=== PATIENT | female | born 1980 | race Caucasian/White ===

== ENCOUNTER 2017-08-08 08:24 | Emergency (ER) | payer MEDICAID ==
[~2017-08-08] VITALS: Ht 162.6 cm; Wt 110.9 kg
[~2017-08-08 08:24] MED LIST: ALBU6.7H INH; AZIT250T PO; CYCL-120 PO; MUPI22OI26 TP; NAPR-56 PO; NO HOME MEDS; PANT20TA2 PO
[2017-08-08 08:30] VITALS: BP 116/85
[2017-08-08] MEDS ORDERED: ibuprofen tablet 400 MG TABLET PO ONE (08:45)
[2017-08-08] MEDS ORDERED: IBUP-1984 PO (09:21)
== END 2017-08-08 09:25 | disposition home or self-care (01) ==
LOC: ER 08:25
DX: S93.402A Sprain of unspecified ligament of left ankle, initial encounter (principal); F17.200 Nicotine dependence, unspecified, uncomplicated; Z59.0 Homelessness; Z79.899 Other long term (current) drug therapy; X50.1XXA Overexertion from prolonged static or awkward postures, initial encounter; Y93.89 Activity, other specified; Y92.89 Other specified places as the place of occurrence of the external cause; Y99.9 Unspecified external cause status
CPT/HCPCS: 29515; 73600; 99284

== ENCOUNTER 2018-08-21 21:37 | Emergency (ER) | payer MEDICAID ==
[~2018-08-21] VITALS: Ht 162.6 cm; Wt 90.0 kg
[2018-08-21] MEDS ORDERED: hydrOXYzine 25 MG tablet PO ONE (22:05)
--- NOTE | 2018-08-21 23:55 | NUR ---
patient sleeping, awoke patient, im here cause the ivf embryologist brought me here "i was at [place] and told a lady my head hurt and i was anxious and not on my meds" patient sees duque at [facility]
[2018-08-22 00:02] VITALS: BP 141/70
[2018-08-22] MEDS ORDERED: CEPH500C5 PO (14:16)
[2018-08-22] MEDS ORDERED: NO HOME MEDS (17:48)
== END 2018-08-22 00:07 | disposition home or self-care (01) ==
LOC: ER 21:38
DX: F41.0 Panic disorder [episodic paroxysmal anxiety] (principal); F31.9 Bipolar disorder, unspecified; F20.9 Schizophrenia, unspecified; Z59.0 Homelessness; Z79.899 Other long term (current) drug therapy
CPT/HCPCS: 99284; Q0177

== ENCOUNTER 2018-08-22 12:47 | Emergency (ER) | payer MEDICAID ==
[~2018-08-22] VITALS: Ht 162.6 cm; Wt 98.0 kg
[2018-08-22 13:34] LABS: BASOPHILS # (AUTO) 0.1 X10'3 (0-0.2); BASOPHILS % (AUTO) 1.4 % (0-1); EOSINOPHILS # (AUTO) 0.2 X10'3 (0-0.9); EOSINOPHILS % (AUTO) 3.1 % (0-6); HEMOGLOBIN 14.7 g/dl (12.0-16.0); LYMPHOCYTES # (AUTO) 1.9 X10'3 (1.1-4.8); LYMPHOCYTES % (AUTO) 28.5 % (21-51); MEAN CORPUSCULAR HEMOGLOBIN 29.7 PG (27.0-31.0); MEAN CORPUSCULAR HGB CONC 34.1 g/dL (33.0-36.5); MEAN PLATELET VOLUME 8.4 FL (7.4-10.4); MONOCYTES # (AUTO) 0.5 X10'3 (0-0.9); MONOCYTES % (AUTO) 7.1 % (2-12); NEUTROPHILS # (AUTO) 3.9 X10'3 (1.8-7.7); NEUTROPHILS % (AUTO) 59.9 % (42-75); PLATELET COUNT 290 X10'3 (140-440); RED BLOOD COUNT 4.94 X10'6 (4.20-5.60); RED CELL DISTRIBUTION WIDTH 14.2 % (11.5-14.5); WHITE BLOOD COUNT 6.5 X10'3 (4.5-11.0)
[2018-08-22 13:54] LABS: ALANINE AMINOTRANSFERASE 28 U/L (12-78); ALBUMIN 3.6 G/DL (3.4-5.0); ALKALINE PHOSPHATASE 67 IU/L (46-116); ANION GAP 9 (8-16); ASPARTATE AMINO TRANSFERASE 14 U/L (10-37); BILIRUBIN,TOTAL 0.3 MG/DL (0.1-1.0); BLOOD UREA NITROGEN 12 MG/DL (7-18); BUN/CREATININE RATIO 14.5 (6.6-38.0); CALCIUM 10.4 MG/DL (8.5-10.1); CHLORIDE 108 MMOL/L (99-107); CREATININE 0.83 MG/DL (0.40-0.90); GLUCOSE 104 MG/DL (70-104); POTASSIUM 4.2 MMOL/L (3.5-5.1); SODIUM 143 MMOL/L (135-145); TOTAL CARBON DIOXIDE 25.8 MMOL/L (24-32); TOTAL PROTEIN 7.2 G/DL (6.4-8.2); eGFR 76 ML/MIN
[2018-08-22 14:03] LABS: CLARITY,URINE SLIGHTLY CLOUDY (Clear); COLOR,URINE YELLOW (Yellow); GLUCOSE, URINE NEGATIVE (Neg); KETONES,URINE TRACE mg/dl (Neg); LEUKOCYTE ESTERASE ,URINE TRACE (Neg); NITRITES, URINE POSITIVE (Neg); OCCULT BLOOD,URINE MODERATE (Neg); PROTEIN,URINE TRACE mg/dl (Neg); URINE HCG NEGATIVE (NEG); UROBILINOGEN,URINE 0.2 E.U/dL (0.2-1.0)
[2018-08-22 14:04] LABS: ETHANOL < 0.010 GM/DL (0.0-0.010)
[2018-08-22 14:09] LABS: UA COLLECTION TYPE CLN CATCH MIDSTREAM
[2018-08-22 14:11] LABS: BACTERIA,URINE 4+ /HPF (Neg); MUCUS STRANDS NONE SEEN /LPF (Neg); SQUAMOUS EPITHELIAL CELL,UR MANY /LPF (FEW); WBC,URINE 30-50 /HPF (0-4)
[2018-08-22 14:14] LABS: URINE AMPHETAMINE SCREEN NEGATIVE (Neg); URINE BARBITUATE SCREEN NEGATIVE (Neg); URINE BENZODIAZEPINES SCREEN NEGATIVE (Neg); URINE CANNABINOID SCREEN POSITIVE (Neg); URINE COCAINE SCREEN NEGATIVE (Neg); URINE METHADONE SCREEN NEGATIVE (Neg); URINE OPIATE SCREEN NEGATIVE (Neg); URINE PHENCYCLIDINE SCREEN NEGATIVE (Neg)
[2018-08-22] MEDS ORDERED: CEPH500C5 PO (14:16)
[2018-08-22] MEDS ORDERED: cephalexin 250mg capsule PO ONE (14:20)
--- NOTE | 2018-08-22 15:00 | NUR ---
packet faxed to [facility]
--- NOTE | 2018-08-22 15:26 | NUR ---
CALLED TO EVELYN URENA.
[2018-08-22] MEDS ORDERED: NO HOME MEDS (17:48)
--- NOTE | 2018-08-22 19:11 | NUR ---
UPSET AFTER TALKING TO ON PHONE, REQUESTING A SLEEPING PILL.
[2018-08-22] MEDS ORDERED: hydrOXYzine 25 MG tablet PO PRN (19:30)
--- NOTE | 2018-08-22 19:30 | NUR ---
TELE PSYCH REPORT SHARED WITH DR HERNADEZ, MEDS ORDERED RECOMMENDED BY SOC, INCLUDING MED FOR SLEEP PT REQUESTED.
[2018-08-22] MEDS: risperiDONE 0.5mg tablet PO SCH (19:41)
[2018-08-22] MEDS: LORazepam 1 MG tablet PO SCH (19:42)
[2018-08-22] MEDS ORDERED: risperiDONE 2mg tablet PO SCH (20:00)
--- NOTE | 2018-08-22 20:00 | NUR ---
SLEEPING MED GIVEN TO PT REQUESTED.
--- NOTE | 2018-08-23 05:51 | NUR ---
REPORT TO JIE AT [facility].
--- NOTE | 2018-08-23 06:54 | NUR ---
Pt in bed sleeping.
--- NOTE | 2018-08-23 08:05 | NUR ---
Pt sitting up in bed eating breakfast.
[2018-08-23] MEDS: LORazepam 1 MG tablet PO SCH ×2 (08:24→19:22)
[2018-08-23] MEDS: risperiDONE 0.5mg tablet PO SCH ×2 (08:24→19:22)
[2018-08-23] MEDS ORDERED: ziprasidone 20mg capsule PO SCH (13:55)
[2018-08-23] MEDS ORDERED: ziprasidone 20mg capsule PO ONE (14:00)
--- NOTE | 2018-08-23 14:30 | NUR ---
Medicated with geodon for complaints of "head bothering her".
--- NOTE | 2018-08-23 16:05 | NUR ---
Received call from [facility], they will pick pt up at 1930.
[2018-08-23 17:59] VITALS: BP 129/90
== END 2018-08-23 19:43 ==
LOC: ER 12:47
DX: F31.9 Bipolar disorder, unspecified (principal); F41.9 Anxiety disorder, unspecified; F20.9 Schizophrenia, unspecified; R44.0 Auditory hallucinations; N39.0 Urinary tract infection, site not specified; E83.52 Hypercalcemia
CPT/HCPCS: 36415; 80053; 80305; 80320; 81001; 81025; 84443; 85025; 87088; 87186; 99285; Q0177; 87077

== ENCOUNTER 2018-08-30 22:13 | Emergency (ER) | payer MEDICAID ==
[~2018-08-30] VITALS: Ht 162.6 cm; Wt 98.5 kg
[~2018-08-30 22:13] MED LIST changes: -ALBU6.7H INH; -AZIT250T PO; -CYCL-120 PO; -MUPI22OI26 TP; -NAPR-56 PO; -PANT20TA2 PO
[2018-08-30] MEDS ORDERED: LORazepam 1 MG tablet PO ONE (23:15)
[2018-08-30] MEDS ORDERED: ziprasidone 20mg capsule PO ONE (23:15)
--- NOTE | 2018-08-30 23:20 | NUR ---
Pt mood labile, vascillating between tearfulness and anxiety. Pt reports audio hallucinations of a threatening nature. She denies S/H/I. She reports being released from inpatient psychiatric facility [facility] ~ 5 days ago and last meth use 2 days (08/28/18). Additionally, pt reports she was evicted from her apartment today saying "I don't have anywhere to go. I can't go to the [facility] because I was taking more medicine than I was suppose too."
--- NOTE | 2018-08-30 23:27 | NUR ---
SOC telepsych initiated. Est time: 3-4 hrs.
--- NOTE | 2018-08-30 23:36 | NUR ---
Report give to GARY Goldberg as pt being transferred to [facility] escorted by GARY Rodriguez.
[2018-08-30 23:41] LABS: URINE HCG NEGATIVE (NEG)
[2018-08-30 23:48] LABS: BASOPHILS # (AUTO) 0.1 X10'3 (0-0.2); BASOPHILS % (AUTO) 1.2 % (0-1); EOSINOPHILS # (AUTO) 0.3 X10'3 (0-0.9); EOSINOPHILS % (AUTO) 3.1 % (0-6); HEMATOCRIT 39.2 % (35.0-45.0); HEMOGLOBIN 13.2 g/dl (12.0-16.0); LYMPHOCYTES # (AUTO) 3.4 X10'3 (1.1-4.8); LYMPHOCYTES % (AUTO) 34.3 % (21-51); MEAN CORPUSCULAR HEMOGLOBIN 29.4 PG (27.0-31.0); MEAN CORPUSCULAR HGB CONC 33.6 g/dL (33.0-36.5); MEAN CORPUSCULAR VOLUME 87.7 FL (78-98); MEAN PLATELET VOLUME 8.6 FL (7.4-10.4); MONOCYTES # (AUTO) 0.7 X10'3 (0-0.9); MONOCYTES % (AUTO) 7.3 % (2-12); NEUTROPHILS # (AUTO) 5.4 X10'3 (1.8-7.7); NEUTROPHILS % (AUTO) 54.1 % (42-75); PLATELET COUNT 289 X10'3 (140-440); RED BLOOD COUNT 4.48 X10'6 (4.20-5.60); RED CELL DISTRIBUTION WIDTH 14.1 % (11.5-14.5)
[2018-08-30 23:51] LABS: ALANINE AMINOTRANSFERASE 34 U/L (12-78); ALBUMIN 3.6 G/DL (3.4-5.0); ALBUMIN/GLOBULIN RATIO 1.1 (1.1-1.5); ALKALINE PHOSPHATASE 83 IU/L (46-116); ANION GAP 10 (8-16); ASPARTATE AMINO TRANSFERASE 18 U/L (10-37); BILIRUBIN,TOTAL 0.2 MG/DL (0.1-1.0); BLOOD UREA NITROGEN 20 MG/DL (7-18); CALCIUM 11.2 MG/DL (8.5-10.1); CHLORIDE 108 MMOL/L (99-107); CREATININE 0.87 MG/DL (0.40-0.90); ETHANOL < 0.010 GM/DL (0.0-0.010); GLUCOSE 137 MG/DL (70-104); POTASSIUM 3.7 MMOL/L (3.5-5.1); SODIUM 142 MMOL/L (135-145); TOTAL CARBON DIOXIDE 24.3 MMOL/L (24-32); TOTAL PROTEIN 6.8 G/DL (6.4-8.2); eGFR 72 ML/MIN
[2018-08-30 23:51] LABS: URINE AMPHETAMINE SCREEN NEGATIVE (Neg); URINE BARBITUATE SCREEN NEGATIVE (Neg); URINE BENZODIAZEPINES SCREEN NEGATIVE (Neg); URINE CANNABINOID SCREEN POSITIVE (Neg); URINE COCAINE SCREEN NEGATIVE (Neg); URINE METHADONE SCREEN NEGATIVE (Neg); URINE OPIATE SCREEN NEGATIVE (Neg); URINE PHENCYCLIDINE SCREEN NEGATIVE (Neg)
--- NOTE | 2018-08-31 | NUR ---
Pt arrived on unit at 23:48 accompanied by staff. Pt changes into green scrubs in restroom and belongings are inventoried. Pt requests a sandwhich and juice which she was given and ate. Pt denies any suicidal ideation at this time. Pt says she is having auditory hallucinations that are telling her "bad" things.
[2018-08-31] MEDS ORDERED: HYDR-3686 PO (00:16)
[2018-08-31] MEDS ORDERED: cephalexin PO (00:16)
[2018-08-31] MEDS ORDERED: PRAZ1CAP5 PO (00:16)
--- NOTE | 2018-08-31 02:54 | NUR ---
Pt was interviewed by telepsych, now asleep in bed.
--- NOTE | 2018-08-31 05:36 | NUR ---
PT is sleeping on R side, no signs or symptoms of distress observed.
[2018-08-31] MEDS: cephalexin 250mg capsule PO SCH ×5 (08:00→20:16)
--- NOTE | 2018-08-31 11:55 | NUR ---
patient awoke from sleep and now eating
--- NOTE | 2018-08-31 12:17 | NUR ---
PATIENT RESTING IN BED. REQUESTING TO TAKE A SHOWER. PATIENT INFORMED THAT SHOWER FACILITIES UNAVAILABLE HERE, BUT OFFERED TOWEL AND WASHCLOTH TO [facility]. PATIENT DECLINES AT THIS TIME.
--- NOTE | 2018-08-31 12:40 | NUR ---
PATIENT ON MENSTRUAL CYCLE AND HAS SOILED LINEN. WASHED UP IN BATHROOM AND HYGIENE PRODUCTS GIVEN. PATIENT STARTED TO SOB AND WHINE, STATING THAT SHE NEEDS MEDICATION FOR HER HEAD. UP OUT OF BED, PACING AROUND, TALKING TO SELF, THEN RETURNING BACK TO BED ON STAFF DIRECTION.
[2018-08-31] MEDS: hydrOXYzine 25 MG tablet PO PRN (12:53)
[2018-08-31] MEDS ORDERED: ziprasidone IM 20mg inj **IM only IM ONE (12:55)
--- NOTE | 2018-08-31 13:10 | NUR ---
MEDICATED FOR ANXIETY ORDERED. CONTINUES TO HAVE OUTBURSTS WITH CRYING AND APOLOGIZING. PATIENT REASSURED. OFFERED LUNCH TRAY.
--- NOTE | 2018-08-31 14:11 | NUR ---
DOZING IN BED. APPEARS CALM AT THIS TIME. RESP UNLABORED.
[2018-08-31] MEDS ORDERED: haloperidol 5mg tablet PO ONE (18:25)
[2018-08-31] MEDS ORDERED: LORazepam 1 MG tablet PO ONE (18:25)
--- NOTE | 2018-08-31 18:30 | NUR ---
The patient awakened and immediately began moaning and responding to internal stimuli. She presented as very distraught. Stated she was hearing voices saying that "They're going to take me away and kill me" She denies that she has visual hallucinations. Her speech was fast and pressured. Stated that she had to move out of her apartment and stated that she had been living in a constant state of fear and felt her life was in danger. She denies active suicidal thoughts. She stated that her anxiety was very high. Discussed level of agitation with MARQUIS Wren and orders received.
[2018-08-31] MEDS: ziprasidone 20mg capsule PO SCH (20:17)
[2018-08-31] MEDS ORDERED: prazosin 1mg capsule PO SCH (21:00)
--- NOTE | 2018-08-31 21:28 | NUR ---
The patient is resting quietly on her bed and appears to be asleep.
--- NOTE | 2018-08-31 23:17 | NUR ---
Patient recently here at [facility] ER and dx'd with a UTI. Her urine currently is very malodorous and MD made aware and will repeat UA this visit as well. The patient stated earlier in the evening that she forgot to tell any one but reports that ativan causes a paradoxical reaction and the ativan was listed in the record as an adverse reaction.
--- NOTE | 2018-09-01 00:44 | NUR ---
The patient appears to be asleep at this time
--- NOTE | 2018-09-01 03:01 | NUR ---
The patient appears to be asleep at this time
--- NOTE | 2018-09-01 04:54 | NUR ---
The patient appears to be asleep
--- NOTE | 2018-09-01 06:30 | NUR ---
Asleep upon change of shift observation. Undisturbed at this time.
[2018-09-01] MEDS ORDERED: lactobacillus rhamnosus 10,000 MMU CELLS/CAPSULE PO SCH (08:00)
--- NOTE | 2018-09-01 08:30 | NUR ---
Awakened for breakfast and AM medications. Standing by the side of her bed, talking to self. Occasionally making crying sounds. Denies SI or intent.
[2018-09-01] MEDS: hydrOXYzine 25 MG tablet PO PRN (08:42)
[2018-09-01] MEDS: ziprasidone 20mg capsule PO SCH (08:42)
[2018-09-01] MEDS: cephalexin 250mg capsule PO SCH (08:42)
--- NOTE | 2018-09-01 09:53 | NUR ---
Willow Cervantes from [facility] at bedside to evaluate patient for possible 5150 criteria.
--- NOTE | 2018-09-01 10:12 | NUR ---
Patient did not meet criteria for 5150 hold. Will be discharged to the [facility] to ask for reinstatement status.
--- NOTE | 2018-09-01 11:00 | NUR ---
Patient discharged to the [facility] via ambulatory with all her personal possessions including medications. Given a bus pass [facility]. Patient will follow up with the [facility] for psychiatric care. Encouraged/educated to stay away from methamphetamine as much as possible to decrease behavior dangerous to self.
[2018-09-01 13:14] VITALS: BP 130/74
== END 2018-09-01 11:00 | disposition home or self-care (01) ==
LOC: ER 22:14
DX: F29 Unspecified psychosis not due to a substance or known physiological condition (principal); F41.9 Anxiety disorder, unspecified; F31.9 Bipolar disorder, unspecified; F20.9 Schizophrenia, unspecified
CPT/HCPCS: 36415; 80053; 80305; 80320; 81025; 85025; 96372; 99285; J3486; Q0177

== ENCOUNTER 2018-10-12 21:49 | Emergency (ER) | payer MEDICAID ==
[~2018-10-12] VITALS: Ht 162.6 cm; Wt 110.0 kg
[~2018-10-12 21:49] MED LIST changes: +HYDR-3686 PO; +MECL-111 PO; +PRAZ1CAP5 PO; +cephalexin PO
[2018-10-12 22:05] VITALS: BP 135/89
[2018-10-12] MEDS ORDERED: ketorolac trometh inj. 60 MG/2 ML VIAL IM ONE (22:25)
== END 2018-10-12 22:45 | disposition home or self-care (01) ==
LOC: ER 21:49
DX: R51 Headache (principal); Z88.8 Allergy status to other drugs, medicaments and biological substances; Z79.899 Other long term (current) drug therapy
CPT/HCPCS: 96372; 99283; J1885

== ENCOUNTER 2018-10-14 23:26 | Emergency (ER) | payer MEDICAID ==
[~2018-10-14] VITALS: Ht 157.5 cm; Wt 92.8 kg
[2018-10-14 23:51] VITALS: BP 139/89
[2018-10-15] MEDS ORDERED: ibuprofen tablet 400 MG TABLET PO ONE (00:45)
[2018-10-15] MEDS ORDERED: acetaminophen 325mg tablet PO ONE (00:45)
--- NOTE | 2018-10-15 00:59 | NUR ---
PT GIVEN SANDWICH, APPLE JUICE AND STRING CHEESE.
== END 2018-10-15 01:12 | disposition home or self-care (01) ==
LOC: ER 23:26
DX: R51 Headache (principal); Z88.6 Allergy status to analgesic agent; Z79.899 Other long term (current) drug therapy
CPT/HCPCS: 99283

== ENCOUNTER 2018-10-16 23:31 | Emergency (ER) | payer MEDICAID ==
[~2018-10-16] VITALS: Ht 157.5 cm; Wt 93.2 kg
[2018-10-16 23:40] VITALS: BP 116/70
[2018-10-17] MEDS ORDERED: ketorolac tromethamine 15mg/ml inj. IM ONE (00:35)
== END 2018-10-17 00:57 | disposition home or self-care (01) ==
LOC: ER 23:31
DX: R51 Headache (principal); Z79.899 Other long term (current) drug therapy; Z88.8 Allergy status to other drugs, medicaments and biological substances
CPT/HCPCS: 96372; 99283; J1885

== ENCOUNTER 2021-12-26 23:43 | Emergency (ER) | payer MEDICAID ==
[~2021-12-26] VITALS: Ht 157.5 cm; Wt 58.9 kg
[~2021-12-26 23:43] MED LIST changes: -HYDR-3686 PO; -MECL-111 PO; -NO HOME MEDS; -PRAZ1CAP5 PO; +QUET50TA24 PO; +VENL75CA61 PO; -cephalexin PO
[2021-12-26] MEDS ORDERED: LORazepam 2 mg/ml vial IM ONE (23:55)
[2021-12-26] MEDS ORDERED: ketorolac tromethamine 15mg/ml inj. IM ONE (23:55)
[2021-12-27 02:05] LABS: BASOPHILS % (AUTO) 0.3 % (0-1); EOSINOPHILS # (AUTO) 0.1 X10'3 (0-0.9); EOSINOPHILS % (AUTO) 0.8 % (0-6); HEMATOCRIT 34.7 % (35.0-45.0); HEMOGLOBIN 11.7 g/dl (12.0-16.0); LYMPHOCYTES # (AUTO) 1.6 X10'3 (1.1-4.8); LYMPHOCYTES % (AUTO) 9.7 % (21-51); MEAN CORPUSCULAR HEMOGLOBIN 30.1 PG (27.0-31.0); MEAN CORPUSCULAR HGB CONC 33.6 g/dL (33.0-36.5); MEAN CORPUSCULAR VOLUME 89.6 FL (78-98); MONOCYTES # (AUTO) 1.1 X10'3 (0-0.9); MONOCYTES % (AUTO) 6.9 % (2-12); NEUTROPHILS # (AUTO) 13.3 X10'3 (1.8-7.7); NEUTROPHILS % (AUTO) 82.3 % (42-75); PLATELET COUNT 315 X10'3 (140-440); RED BLOOD COUNT 3.88 X10'6 (4.20-5.60); RED CELL DISTRIBUTION WIDTH 14.3 % (11.5-14.5); WHITE BLOOD COUNT 16.1 X10'3 (4.5-11.0)
[2021-12-27 02:06] LABS: ALANINE AMINOTRANSFERASE 18 U/L (12-78); ALBUMIN 3.4 G/DL (3.4-5.0); ALBUMIN/GLOBULIN RATIO 0.9 (1.1-1.5); ALKALINE PHOSPHATASE 93 IU/L (46-116); ANION GAP 8 (8-16); ASPARTATE AMINO TRANSFERASE 16 U/L (10-37); BILIRUBIN,TOTAL 0.3 MG/DL (0.1-1.0); BLOOD UREA NITROGEN 14 MG/DL (7-18); BUN/CREATININE RATIO 17.9 (6.6-38.0); C-REACTIVE PROTEIN 11.03 MG/DL (0.0-0.5); CALCIUM 9.9 MG/DL (8.5-10.1); CHLORIDE 103 MMOL/L (99-107); CREATININE 0.78 MG/DL (0.40-0.90); GLUCOSE 137 MG/DL (70-104); POTASSIUM 3.8 MMOL/L (3.5-5.1); SODIUM 137 MMOL/L (135-145); TOTAL CARBON DIOXIDE 26.2 MMOL/L (24-32); TOTAL PROTEIN 7.3 G/DL (6.4-8.2); eGFR 81 ML/MIN
[2021-12-27] MEDS ORDERED: CefTRIAXone/D5W-Rocephin 1gm 50 ML IV ONE (05:30)
[2021-12-27] MEDS ORDERED: ACET650T58 PO (05:34)
[2021-12-27] MEDS ORDERED: CEPH500C2 PO (05:34)
[2021-12-27] MEDS ORDERED: IBUP-1985 PO (05:34)
[2021-12-27 05:57] LABS: CLARITY,URINE SLIGHTLY CLOUDY (Clear); COLOR,URINE YELLOW (Yellow); GLUCOSE, URINE NEGATIVE (Neg); KETONES,URINE NEGATIVE (Neg); LEUKOCYTE ESTERASE ,URINE NEGATIVE (Neg); NITRITES, URINE POSITIVE (Neg); OCCULT BLOOD,URINE TRACE-INTACT (Neg); PH,URINE 5.5 (4.8-8.0); PROTEIN,URINE NEGATIVE (Neg); UROBILINOGEN,URINE 0.2 E.U/dL (0.2-1.0)
[2021-12-27 06:03] LABS: UA COLLECTION TYPE STRAIGHT CATH
[2021-12-27 06:04] LABS: BACTERIA,URINE 4+ /HPF (Neg); MUCUS STRANDS FEW /LPF (Neg); RBC,URINE NONE SEEN /HPF (0-2); SQUAMOUS EPITHELIAL CELL,UR FEW /LPF (FEW); TRANSITIONAL EPI CELLS,URINE FEW /HPF; WBC,URINE 0-4 /HPF (0-4)
--- NOTE | 2021-12-27 06:53 | NUR ---
IV ABX finished from overnight associate. VSS. Pt educated regarding prescription to be picked up at [facility] on [facility]. Verbalized understanding. D/Kang from unit ambulating ind.
[2021-12-27 06:54] VITALS: BP 101/53
== END 2021-12-27 06:58 | disposition home or self-care (01) ==
LOC: ER 23:44
DX: M79.671 Pain in right foot (principal); Z20.822 Contact with and (suspected) exposure to COVID-19; N39.0 Urinary tract infection, site not specified; F31.9 Bipolar disorder, unspecified
CPT/HCPCS: 36415; 71045; 73590; 73630; 80053; 81001; 83605; 84145; 85025; 85651; 86140; 87040; 87077; 87088; 87186; 87635; 93971; 96365; 96372; 99285; C9803; J0696; J1885; J2060; A4353

== ENCOUNTER 2022-07-24 13:14 | Emergency (ER) | payer MEDICAID ==
[~2022-07-24] VITALS: Ht 157.5 cm; Wt 59.1 kg
[~2022-07-24 13:14] MED LIST changes: +IBUP-1985 PO
[2022-07-24 13:48] LABS: BASOPHILS % (AUTO) 0.6 % (0-1); EOSINOPHILS # (AUTO) 0.1 X10'3 (0-0.9); EOSINOPHILS % (AUTO) 1.6 % (0-6); HEMATOCRIT 38.7 % (35.0-45.0); HEMOGLOBIN 12.7 g/dl (12.0-16.0); LYMPHOCYTES # (AUTO) 1.8 X10'3 (1.1-4.8); LYMPHOCYTES % (AUTO) 26.7 % (21-51); MEAN CORPUSCULAR HEMOGLOBIN 30.1 PG (27.0-31.0); MEAN CORPUSCULAR HGB CONC 32.9 g/dL (33.0-36.5); MEAN CORPUSCULAR VOLUME 91.5 FL (78-98); MEAN PLATELET VOLUME 7.6 FL (7.4-10.4); MONOCYTES # (AUTO) 0.5 X10'3 (0-0.9); MONOCYTES % (AUTO) 7.9 % (2-12); NEUTROPHILS # (AUTO) 4.2 X10'3 (1.8-7.7); NEUTROPHILS % (AUTO) 63.2 % (42-75); PLATELET COUNT 327 X10'3 (140-440); RED BLOOD COUNT 4.23 X10'6 (4.20-5.60); WHITE BLOOD COUNT 6.7 X10'3 (4.5-11.0)
[2022-07-24 13:59] LABS: ALANINE AMINOTRANSFERASE 17 U/L (12-78); ALBUMIN 3.5 G/DL (3.4-5.0); ALBUMIN/GLOBULIN RATIO 0.9 (1.1-1.5); ALKALINE PHOSPHATASE 87 IU/L (46-116); ANION GAP 3 (8-16); ASPARTATE AMINO TRANSFERASE 20 U/L (10-37); BILIRUBIN,TOTAL 0.2 MG/DL (0.1-1.0); BLOOD UREA NITROGEN 10 MG/DL (7-18); CALCIUM 10.6 MG/DL (8.5-10.1); CHLORIDE 105 MMOL/L (99-107); CREATININE 0.77 MG/DL (0.40-0.90); ETHANOL < 0.010 GM/DL (0.0-0.010); GLUCOSE 141 MG/DL (70-104); POTASSIUM 4.3 MMOL/L (3.5-5.1); SODIUM 138 MMOL/L (135-145); TOTAL CARBON DIOXIDE 30.2 MMOL/L (24-32); TOTAL PROTEIN 7.4 G/DL (6.4-8.2); eGFR 81 ML/MIN
--- NOTE | 2022-07-24 14:00 | NUR ---
PT SCREAMING AND CRYING, REFUSING TO CHANGE INTO GREEN SCRUBS. SECURITY CALLED TO BEDSIDE. PT CHANGED INTO SCRUBS RELUCTANTLY. PT REPATING, "YOU CAN'T KEEP ME HERE I'VE DONE NOTHING WRONG!" THIS RN ATTEMPTED TO EDUCATE PT ON HOLD STATUS, PT DOES NOT COMPREHEND. PT MUCH CALMER AFTER CHANGING INTO SCRUBS. TURKEY SANDWICH AND WATER PROVIDED.
--- NOTE | 2022-07-24 15:04 | NUR ---
PT SITTING ON BED EATING SANDWICH. RESPONDING OCCASIONALLY TO INTERNAL STIMULI. FREQUENT HANDWASHING.
--- NOTE | 2022-07-24 15:08 | NUR ---
PT REQUESTING "LIGHTS OFF AND A BLANKIE". BLANKET PROVIDED. PT LYING ON SIDE, KNEES FLEXED, SUCKING THUMB.
--- NOTE | 2022-07-24 15:21 | NUR ---
PT APPEARS DISTRESSED SITTING ON BED REACTING TO INTERNAL STIMULI
[2022-07-24 15:27] LABS: URINE AMPHETAMINE SCREEN POSITIVE (Neg); URINE BARBITUATE SCREEN NEGATIVE (Neg); URINE BENZODIAZEPINES SCREEN NEGATIVE (Neg); URINE CANNABINOID SCREEN POSITIVE (Neg); URINE COCAINE SCREEN NEGATIVE (Neg); URINE METHADONE SCREEN NEGATIVE (Neg); URINE OPIATE SCREEN NEGATIVE (Neg); URINE PHENCYCLIDINE SCREEN NEGATIVE (Neg)
--- NOTE | 2022-07-24 15:34 | NUR ---
attempted to complete medication reconciliation. Pt states she takes no daily medications.
[2022-07-24 15:38] LABS: URINE HCG NEGATIVE (NEG)
--- NOTE | 2022-07-24 17:14 | NUR ---
Pt ambulating to bathroom with executive director of nursing. Sucking thumb and bouncing on balls of feet in a childlike manner. Pt cheerful and energetic.
--- NOTE | 2022-07-24 20:26 | NUR ---
Patient resting at this time, no distress noted. Breathing even and unlabored.
--- NOTE | 2022-07-24 22:49 | NUR ---
Patient remains asleep, no distress noted. Respiration even and unlabored. Self repositioning in stretcher as needed.
--- NOTE | 2022-07-24 23:51 | NUR ---
Patient awake at this time, patient requesting more blankets and sandwich. Patient given blankets. Patient informed we are out of sandwiches but offered several food alternatives, patient declines stating she is fine. Patient VS updated.
--- NOTE | 2022-07-25 01:17 | NUR ---
Patient back to sleep, no distress noted, patient breathing is even and unlabored.
--- NOTE | 2022-07-25 06:33 | NUR ---
Patient asleep, no distress noted. Breathing is even and unlabored.
--- NOTE | 2022-07-25 10:04 | NUR ---
Pt resting in bed, noted rise and fall of chest. No distress noted.
--- NOTE | 2022-07-25 10:15 | NUR ---
1:1 done at bedside, pt denies A/VH as well as S/HI stating, "I just want to go home." Pt appeared paranoid during interaction, randomly looking away from nurse as if she was seeing things. Denies distress or pain.
--- NOTE | 2022-07-25 10:19 | NUR ---
Nurse to nurse completed with [facility]. [facility] called and pt. has been accepted to [facility].
--- NOTE | 2022-07-25 10:30 | NUR ---
Called lab and had them run a UA on pt urine. Awaiting results to be faxed to [facility].
--- NOTE | 2022-07-25 12:30 | NUR ---
Lunch placed on bedside table. Pt asleep with noted rise and fall of chest. Nurse did attempt to wake pt.
[2022-07-25 13:37] LABS: CLARITY,URINE CLOUDY (Clear); COLOR,URINE YELLOW (Yellow); GLUCOSE, URINE NEGATIVE (Neg); KETONES,URINE NEGATIVE (Neg); LEUKOCYTE ESTERASE ,URINE TRACE (Neg); NITRITES, URINE POSITIVE (Neg); OCCULT BLOOD,URINE LARGE (Neg); PH,URINE 5.5 (4.8-8.0); PROTEIN,URINE NEGATIVE (Neg); UROBILINOGEN,URINE 0.2 E.U/dL (0.2-1.0)
[2022-07-25 13:38] LABS: UA COLLECTION TYPE CLN CATCH MIDSTREAM
[2022-07-25 13:43] LABS: BACTERIA,URINE 4+ /HPF (Neg); CAL OXALATE CRYSTALS 3+ /HPF (NEGATIVE); MUCUS STRANDS NONE SEEN /LPF (Neg); SQUAMOUS EPITHELIAL CELL,UR FEW /LPF (FEW)
--- NOTE | 2022-07-25 13:59 | NUR ---
Pt sleeping, noted rise and fall of chest. UA results back, culture indicated. Brandie from [facility] has been notified.
--- NOTE | 2022-07-25 14:04 | NUR ---
pt resting on right side with eyes closed, respirations equal and non-labored.
--- NOTE | 2022-07-25 14:49 | NUR ---
New order to start keflex 500mg TID to address UA abnormalities. [facility] notified of treatment.
[2022-07-25] MEDS ORDERED: cephalexin 250mg capsule PO ONE (14:50)
[2022-07-25] MEDS: cephalexin 250mg capsule PO SCH ×2 (14:50→20:36)
--- NOTE | 2022-07-25 14:56 | NUR ---
Pt ate lunch and first dose of abt given. Pt informed she may be going to [facility] in [place], pt. is not happpy about this decision. Pt. requesting to go home. Pt is heard responding to internal stimuli.
--- NOTE | 2022-07-25 15:52 | NUR ---
Notes sent to [facility] indicating first dose of ABT has been administered. Pt is sitting up in her bed eating snacks.
--- NOTE | 2022-07-25 17:32 | NUR ---
Pt sitting up in bed. No distress noted.
--- NOTE | 2022-07-25 18:01 | NUR ---
Pt eating dinner.
--- NOTE | 2022-07-25 18:37 | NUR ---
PT RESTING IN BED QUIETLY. PT DOES NOT APPEAR TO BE IN ANY DISTRESS AT THIS TIME. THE PT IS NOT CURRENTLY RESPONDING TO ANY STIMULI AT THIS TIME.
--- NOTE | 2022-07-25 19:46 | NUR ---
PT CONTINUES TO REST ON THE BED QUIETLY. PT DOES NOT APPEAR TO BE RESPONDING TO INTERNAL STIMULI AT THIS TIME. RR ARE EQUAL AND UNLABORED.
--- NOTE | 2022-07-25 20:42 | NUR ---
PT GIVEN SECOND DOSE OF KEFLEX 500MG PO TO ADDRESS THE ABNORMAL UA RESULT.
--- NOTE | 2022-07-25 20:45 | NUR ---
PROGRESS NOTE DOCUMENTING THE ADMINISTRATION OF ABX FAXED TO [facility] PER THEIR REQUEST.
--- NOTE | 2022-07-25 20:46 | NUR ---
PT GIVEN SANDWICH, WATER, APPLE JUICE, AND RUBEN CRACKERS UPON REQUEST. PT RESPONDING TO INTERNAL STIMULI WHILE EATING.
[2022-07-25] MEDS ORDERED: haloperidol 5mg tablet PO ONE (21:15)
[2022-07-25] MEDS ORDERED: diphenhydrAMINE 25mg capsule PO ONE (21:15)
--- NOTE | 2022-07-25 21:16 | NUR ---
This RN is assisting primary nurse. The patient exhibits internal stimuli and paranoia. Dr. Fu consulted, Haldol 5 mg PO and Benadryl 50 mg PO are ordered.
--- NOTE | 2022-07-25 22:16 | NUR ---
PT IS SLEEPING ON THE BED IN ER [facility] BED 27. THERE IS NO DISTRESS OBSERVED AT THIS TIME.
--- NOTE | 2022-07-25 23:58 | NUR ---
PT APPEARS TO BE ASLEEP AT THIS TIME IN THE BED. THERE IS NO DISTRESS OBSERVED AT THIS TIME. RR ARE EQUAL AND UNLABORED.
--- NOTE | 2022-07-26 01:02 | NUR ---
PT CONTINUES TO SLEEP ON THE BED WITH BLANKETS PULLED UP. NO DISTRESS IS OBSERVED AT THIS TIME.
--- NOTE | 2022-07-26 02:41 | NUR ---
PT CONTINUES TO SLEEP IN THE BED. RR ARE EQUAL AND UNLABORED. NO DISTRESS OBSERVED AT THIS TIME.
--- NOTE | 2022-07-26 03:30 | NUR ---
PT APPEARS TO BE ASLEEP IN THE BED AND SELF REPOSITIONING OCCASIONALLY. PT IS SHOWING NO S/S OF DISTRESS.
--- NOTE | 2022-07-26 04:40 | NUR ---
PT CONTINUES TO APPEAR TO BE ASLEEP. NO DISTRESS OR INTERNAL STIMULI NOTED. RR ARE EQUAL AND UNLABORED.
--- NOTE | 2022-07-26 05:53 | NUR ---
PT CONTINUES SLEEPING. NO DISTRESS OBSERVED. RR EQUAL AND UNLABORED.
[2022-07-26 07:08] VITALS: BP 105/68
--- NOTE | 2022-07-26 07:22 | NUR ---
Received Pt in bed sleeping w/o distress at this time.
[2022-07-26] MEDS: cephalexin 250mg capsule PO SCH ×2 (08:30→13:00)
--- NOTE | 2022-07-26 09:20 | NUR ---
pT REMAINS IN BED SLEEPING. sHE WOKE TO TAKE am MED W/O ISSUE.
--- NOTE | 2022-07-26 11:05 | NUR ---
Pt woke to use bathroom and returned to bed. Pt in bed with covers over her head.
--- NOTE | 2022-07-26 13:20 | NUR ---
Pt belongings returned to her and she changed into civilian clothes. [facility] laundry route driver given 5150 and belongings to transport Pt to [facility].
== END 2022-07-26 17:49 ==
LOC: ER 13:15
DX: F79 Unspecified intellectual disabilities (principal); Z20.822 Contact with and (suspected) exposure to COVID-19; F31.9 Bipolar disorder, unspecified; Z79.899 Other long term (current) drug therapy
CPT/HCPCS: 36415; 80053; 80305; 80320; 81001; 81025; 85025; 87077; 87088; 87186; 87811; 99285; Q0163

== ENCOUNTER 2025-04-11 18:32 | Emergency (ER) | payer MEDICAID ==
[~2025-04-11] VITALS: Ht 157.5 cm; Wt 111.8 kg
--- NOTE | 2025-04-11 19:16 | Physician Documentation ---
History of Present Illness ~ Chief Complaint: Bite-insect Stated Complaint: HEAD LICE Time Seen by MD: 18:50 Primary Medical Doctor: amadeo Yanes This is a 44-year-old female who presents from the [facility] due to concern for head lice patient was told they found lice in lice eggs in her hair and she would need this treated to return to the [facility], patient reports no other acute symptoms or concerns. Tetanus within 5 years?: No Medication Reconciliation Allergies: Coded Allergies: No Known Drug Allergies (Verified Allergy, Unknown, 06/22/19) lorazepam (Verified Adverse Reaction, Intermediate, agitation, 06/15/23) Discontinued Medications Permethrin (Lice Treatment), 1 APPLIC TOP ONCE Past Medical History Past Medical History: Anxiety, Bipolar, Depression, Schizophrenia Past Surgical History: noncontributory Patient History: FHx: mental illness MOTHER Alcohol Use: None Drug Use: none Lives with: Spouse Lives In: Home Occupation: employed Review of Systems ROS As stated above in the HPI, otherwise all systems are reviewed and negative. Physical Exam Vital Signs: Temperature: 97.8, Source: Temporal, Heart Rate: 104, Respiratory Rate: 16, BP: 141/84, Pulse Oximetry: 99, Weight: 111.820 Oxygen Flow Rate: 0 Physical Exam VITALS: Reviewed and as above. GENERAL: Alert, nontoxic appearing, no apparent distress. HEENT: Lice eggs on shafts of hair RESPIRATORY: No increased work of breathing, no respiratory distress, speaking in full clear sentences Progress Results/Orders Results/Orders Completed Orders - HAKEEM GODDARD SISAL OPERATOR Permethrin Hair Rinse (Lice Treatment) (04/11/25 19:20) Ivermectin 117 Gm Bottle (Ivermectin 117 (04/11/25 19:45) Medications Received in ER Medications (Trade) Dose Ordered Sig/Rah Route PRN Reason Start Time Stop Time Status Last Admin Dose Admin (Lice Treatment) 1 applic ONCE ONCE TP 04/11/25 19:20 04/11/25 19:21 DC 04/11/25 20:05 1 APPLIC (Ivermectin 117gm lotion) 1 applic ONCE ONCE TP 04/11/25 19:45 04/11/25 19:46 DC 04/11/25 20:08 1 APPLIC Vital Signs 04/11/25 04/11/25 18:41 20:09 Temp 97.8 98.6 Pulse 104 99 Resp 16 18 B/P (MAP) 141/84 140/82 Pulse Ox 99 99 O2 Flow Rate 0 Medical Decision Making Additional information obtaine: N/A Findings This otherwise well 44-year-old female presented requesting treatment for lice in order to return to the [facility], lice were found in her hair and she will require treatment. Patient provided home care instructions and return to care precautions. Differential Dx:Considerations: Include: Allergic reaction, Anaphylaxis, Cellulitis, Insect envenomation, Urticaria, Other (Body lice, scabies, dandruff) Departure Time of Disposition: 19:14 Disposition: 01 HOME / SELF CARE / HOMELESS Impression: Primary Impression: Lice infested hair Discharge Instructions: Lice, Adult Additional Instructions: You have received treatment for your lice infestation. Please additionally cone picker a lice comb from your local pharmacy to help remove the lice and nits from your hair. Please follow up with your primary care provider or the [facility] in the next few days. Please return to the emergency department for any new or worsening concerning symptoms. Referrals: NO PRIMARY CARE PROVIDER (PCP) Education Educated: Patient Educated regarding: diagnosis, treatment, prognosis, need for follow up Signature Scribe Signature: No scribe Attestation: The note accurately reflects work and decisions made by me.GARETT Leahy 04/11/25 23:12 HAKEEM GODDARD Apr 11, 2025 19:16
[2025-04-11] MEDS ORDERED: PERM59LI8 TOP (19:18)
[2025-04-11] MEDS: Permethrin 1% 59ml topical rinse TP ONE (20:05)
[2025-04-11] MEDS: IVERMECTIN 117 GM LOTION TP ONE (20:08)
[2025-04-11 20:09] VITALS: BP 140/82; PULSE 99; RESP 18; TEMP 98.6; O2SAT 99
== END 2025-04-11 20:10 | disposition home or self-care (01) ==
LOC: ER 18:33
DX: B85.0 Pediculosis due to Pediculus humanus capitis (principal); F20.9 Schizophrenia, unspecified; F31.9 Bipolar disorder, unspecified; Z81.8 Family history of other mental and behavioral disorders
CPT/HCPCS: 99283